=== PATIENT | female | born 1970 | race African-American/Black ===

== ENCOUNTER 2017-04-20 15:35 | Emergency (ER) | payer OTHER ==
[2017-04-20 15:51] VITALS: BP 145/85; PULSE 58; TEMP 98.2; BMI 39.1
[2017-04-20] MEDS ORDERED: SODIUM CHLORIDE 1,000 ML IV STA (16:08)
[2017-04-20] MEDS ORDERED: morphine CARPU-JECT 4 MG/1 ML DISP.SYRIN IVPUSH ONE (16:10)
[2017-04-20] MEDS ORDERED: morphine CARPU-JECT 4 MG/1 ML DISP.SYRIN ONE (16:11)
--- NOTE | 2017-04-20 16:13 | PDOC ---
History of Present Illness <Rachel Henderson - Last Filed: 04/20/17 18:35> - General History Source: Patient Exam Limitations: No Limitations - History of Present Illness Initial Comments: 04/20/17 16:18 46 y/o F with a PMHx of HTN, cholecystectomy, bariatric surgery presents to the ED with intermittent right sided pain for 2 days. Patient rates the pain a 9/ 10. She states it began two days ago and resolved by itself, but returned today and has persisted. She reports she had residual gallstones after her cholecystectomy. She denies fever, chills, nausea, vomiting, diarrhea, constipation. Denies back pain, dysuria, hematuria. Denies chest pain, SOB. <Keily Gan - Last Filed: 04/20/17 18:39> - General Chief Complaint: Pain Stated Complaint: RIGHT FLANK/ABD PAIN Time Seen by Provider: 04/20/17 15:42 Past History - Past Medical History Anemia: No Asthma: No Cancer: No Cardiac Disorders: No CVA: No COPD: No CHF: No Dementia: No Diabetes: No GI Disorders: No Disorders: No (COMMON BILE DUCT STONES) HTN: Yes Hypercholesterolemia: No Liver Disease: No Seizures: No Thyroid Disease: No - Surgical History Abdominal Surgery: Yes (SEE BELOW) Appendectomy: No Cardiac Surgery: No Cholecystectomy: Yes (1989) Lung Surgery: No Neurologic Surgery: No Orthopedic Surgery: Yes (LEFT KNEE ARTHROSCOPY 2013) - Suicide/Smoking/Psychosocial Hx Smoking Status: No Smoking History: Never smoked Have you smoked in the past 12 months: No Number of Cigarettes Smoked Daily: 0 Hx Alcohol Use: No Drug/Substance Use Hx: No Substance Use Type: Alcohol Hx Substance Use Treatment: No <Rachel Henderson - Last Filed: 04/20/17 18:35> <Keily Gan - Last Filed: 04/20/17 18:39> - Past Medical History Allergies/Adverse Reactions: Allergies Allergy/AdvReac Type Severity Reaction Status Date / Time No Known Drug Allergies Allergy Verified 02/08/16 13:20 Home Medications: Ambulatory Orders Cholecalciferol (Vitamin D3) [Vitamin D3] 2,000 unit PO DAILY 04/20/17 Lidocaine 5% Patch [Lidoderm Patch -] 1 patch TP DAILY PRN #30 patch 04/20/17 Methocarbamol [Robaxin -] 500 mg PO TID PRN #30 tablet 04/20/17 Multivitamin/Iron/Folic Acid [Centrum Adults Tablet] 1 each PO DAILY 04/20/17 Naproxen [Naprosyn -] 500 mg PO BID PRN #14 tablet 04/20/17 Abd/GI Specific PMHX - Complaint Specific PMHX Gall Bladder Disease: Yes (s/p miguel and retained stones) Pancreatitis: No <Rachel Henderson - Last Filed: 04/20/17 18:35> Review of Systems - Review of Systems Able to Perform ROS?: Yes Comments:: 04/20/17 16:18 GENERAL/CONSTITUTIONAL: No: fever, chills, weakness, loss of appetite. HEAD, EYES, EARS, NOSE AND THROAT: No: change in vision, ear pain, discharge, sore throat, throat swelling. CARDIOVASCULAR: No: chest pain, lightheadedness, palpitations, syncope RESPIRATORY: No: cough, shortness of breath, wheezing, hemoptysis, stridor. GASTROINTESTINAL: (+) right sided pain. No: nausea, vomiting, abdominal cramping , diarrhea, rectal bleeding, constipation. GENITOURINARY: No: dysuria, hematuria, frequency, urgency, flank pain. MUSCULOSKELETAL: No: back pain, neck pain, joint pain, muscle swelling or pain SKIN AND BREASTS: No: lesions, pallor, rash or easy bruising. NEUROLOGIC: No: headache, vertigo, paresthesias, weakness ENDOCRINE: No: unexplained weight gain or loss HEMATOLOGIC/LYMPHATIC: No: anemia, easy bleeding, swelling nodes <Keily Gan - Last Filed: 04/20/17 18:39> *Physical Exam - Vital Signs Last Vital Signs Temp Pulse Resp BP Pulse Ox 98.2 F 58 L 15 145/85 98 04/20/17 15:41 04/20/17 15:41 04/20/17 15:41 04/20/17 15:41 04/20/17 15:41 - Physical Exam Comments: 04/20/17 16:18 GENERAL: The patient is in no acute distress. HEAD: Normal with no signs of trauma. EYES: PERRLA, EOMI, sclera anicteric, conjunctiva clear. ENT: Ears normal, nares patent, oropharynx clear without exudates. Moist mucous membranes. NECK: Normal range of motion, supple without lymphadenopathy, JVD, or masses. LUNGS: Breath sounds equal, clear to auscultation bilaterally. No wheezes, and no crackles. HEART:Regular rate and rhythm, normal S1 and S2 without murmur, rub or gallop. ABDOMEN: Soft, nontender, normoactive bowel sounds. No guarding, no rebound. EXTREMITIES: Normal range of motion, no edema. No clubbing or cyanosis. No erythema, or tenderness. NEUROLOGICAL: Cranial nerves II through XII grossly intact. Normal speech. No focal neurological deficits. MUSCULOSKELETAL: Back non-tender to palpation, no CVA tenderness SKIN: Warm, Dry, normal turgor, no rashes or lesions noted. <Keily Gan - Last Filed: 04/20/17 18:39> ED Treatment Course - LABORATORY CBC & Chemistry Diagram: 04/20/17 16:20 04/20/17 16:20 <Rachel Henderson - Last Filed: 04/20/17 18:35> - LABORATORY CBC & Chemistry Diagram: 04/20/17 16:20 04/20/17 16:20 - RADIOLOGY Radiograph Interpretation: 04/20/17 18:[address] reported by Dr[address] Christopher Bravo Impression: No evidence of urinary tract calculi, obstructive uropathy or acute pathology within the abdomen or pelvis <Keily Gan - Last Filed: 04/20/17 18:39> Medical Decision Making - Medical Decision Making A portion of this note was documented by scribe services under my direction. I have reviewed the details of the note, within reason, and agree with the documentation with the following case summary and management plan written by me. Nursing documentation reviewed and incorporated into medical decision making 04/20/17 16:26 46 yo F presenting ot the ER With 2 days of right side/flank pain currently /10 ? radiation to the groin No fevers or chills No hematuria or pyuria Prior cholecystectomy DD: nephrolithiasis, ureterolithiasis, pyelonephritis, musculoskeletal pain, obstruction? 04/20/17 16:50 Laboratory Tests 04/20/17 04/20/17 15:50 16:20 WBC 7.0 Hgb 12.0 Hct 35.7 Plt Count 174 Urine Blood 1+ H Urine Nitrite Negative Urine HCG, Qual Negative 04/20/17 17:24 Laboratory Tests 04/20/17 16:20 Sodium 136 Potassium 3.7 Chloride 104 Carbon Dioxide 27 BUN 9 Creatinine 0.8 Random Glucose 82 04/20/17 18:35 CT of the abdomen and pelvis negative for any acute intra-abdominal pathology. Patient be discharged home. Patient will be asked to follow-up with her primary care physician. Symptoms most consistent with musculoskeletal pain. Return to the emergency department for any other concerns or complaints. <Rachel Henderson - Last Filed: 04/20/17 18:35> *DC/Admit/Observation/Transfer - Discharge Dispostion Admit: No <Rachel Henderson - Last Filed: 04/20/17 18:35> - Attestations Scribe Attestion: 04/20/17 16:18 Documentation prepared by Keily Gan, acting as medical charge entry specialist for Rachel Henderson MD. <Keily Gan - Last Filed: 04/20/17 18:39> Diagnosis at time of Disposition: Musculoskeletal pain - Discharge Dispostion Disposition: HOME Condition at time of disposition: Good - Prescriptions Prescriptions: Lidocaine 5% Patch [Lidoderm Patch -] 1 patch TP DAILY PRN #30 patch PRN Reason: Pain Naproxen [Naprosyn -] 500 mg PO BID PRN #14 tablet PRN Reason: Pain Methocarbamol [Robaxin -] 500 mg PO TID PRN #30 tablet PRN Reason: Pain - Referrals Referrals: Devon Rae MD [Primary Care Provider] - - Patient Instructions Printed Discharge Instructions: DI for Musculoskeletal Pain Additional Instructions: Return to the emergency department immediately with ANY new, persistent or worsening symptoms. Continue any medications as previously prescribed by your physician. You should follow up with your primary doctor as soon as possible regarding today's emergency department visit. . Please make sure your doctor reviews the results of your emergency evaluation. Thank you for coming to the [facility] today for your care. It was a pleasure to see you today. Please note that your evaluation is INCOMPLETE until you follow-up with your doctor. - Post Discharge Activity Forms/Work/School Notes: Back to Work
[2017-04-20 16:25] LABS: PH,URINE 5.5 (4.5-8); URINE APPEARANCE Clear; URINE BILIRUBIN 1+ (NEGATIVE); URINE BLOOD 1+ (NEGATIVE); URINE COLOR YELLOW; URINE GLUCOSE (UA) Negative (NEGATIVE); URINE KETONE 1+ (NEGATIVE); URINE LEUK ESTERASE Negative (NEGATIVE); URINE NITRITE Negative (NEGATIVE); URINE PROTEIN Trace (NEGATIVE)
[2017-04-20 16:42] LABS: BASOPHIL 0.4 % (0-2.0); EOSINOPHIL 1.5 % (0-4.5); MCHC 33.7 g/dl (32.0-36.0); MEAN CELL VOLUME 86.2 fl (80-96); MEAN PLT VOLUME 10.3 fl (7.5-11.1); NEUTROPHILS 67.5 % (42.8-82.8); PLATELET COUNT 174 K/MM3 (134-434); RDW 14.2 % (11.6-15.6)
[2017-04-20 16:53] LABS: ALBUMIN 3.8 g/dl (3.5-5.0); ALK PHOS 72 U/L (32-92); ANION GAP 5 (8-16); BILIRUBIN,TOTAL 0.7 mg/dl (0.2-1.0); CALCIUM 9.2 mg/dl (8.4-10.2); CO2 27 mmol/L (22-28); CREATININE 0.8 mg/dl (0.6-1.3); GLUCOSE,RANDOM 82 mg/dl (74-106); SGOT/AST 17 U/L (10-42); SGPT/ALT 9 U/L (10-40); TOT PROT 6.7 g/dl (6.4-8.3)
[2017-04-20 17:25] LABS: URINE BACTERIA FEW /hpf (NEGATIVE); URINE RBC 0-2 /hpf (0-3)
== END 2017-04-20 18:53 | disposition home or self-care (01) ==
LOC: FER 15:35
PROC: 3E033NZ Introduction of Analgesics, Hypnotics, Sedatives into Peripheral Vein, Percutaneous Approach (ICD-10-PCS; principal; 2017-04-20)
PROC: 3E0337Z Introduction of Electrolytic and Water Balance Substance into Peripheral Vein, Percutaneous Approach (ICD-10-PCS; 2017-04-20)
DX: M79.1 Myalgia (principal); I10 Essential (primary) hypertension
CPT/HCPCS: 36415; 74176; 80053; 81003; 81015; 84703; 85025; 87086; 96361; 96374; 99283-25

== ENCOUNTER 2018-08-05 18:50 | Observation (INO) | payer BC ==
--- NOTE | 2018-08-05 21:34 | PDOC ---
History of Present Illness <Andie Esteban - Last Filed: 08/05/18 21:54> - General History Source: Patient, Old Records Exam Limitations: No Limitations - History of Present Illness Initial Comments: HPI: 47 y/o female presenting to [facility] ER complaining of upper midline to RUQ abdominal pain worsening over the past three days. Pain radiates into right side of chest, right upper extremity, and back. Endorses nausea without vomiting. Normal bowel movements, last yesterday. Tolerating PO. H/o of similar symptoms. S/p cholecystectomy and gastric sleeve. H/o recurrent biliary stones following cholecystectomy. Followed by Dr. Marmolejo, who told the pt to come to the emergency department if symptoms return. Pt had abdominal MRI performed in 03/2018 which revealed possible 4mm nodule versus artifact in posterior right costophrenic angle. S/p cholecystectomy. CBD not dilated. PCP: Dr. Rae Social Hx: - EtOH: Social, none in last few days - Tobacco: Denies - Street Drugs: Denies Medical Hx: - HTN Surgical Hx: - Cholecystectomy - Gastric Sleeve, 07/2016 at facility in [facility] <Jeffry Argueta - Last Filed: 08/06/18 01:03> - General Chief Complaint: Pain, Acute Stated Complaint: ABDOMINAL PAIN Time Seen by Provider: 08/05/18 21:31 Past History <Andie Esteban - Last Filed: 08/05/18 21:54> - Past Medical History Anemia: No Asthma: No Cancer: No Cardiac Disorders: No CVA: No COPD: No CHF: No Dementia: No Diabetes: No GI Disorders: No Disorders: No (COMMON BILE DUCT STONES) HTN: Yes Hypercholesterolemia: No Liver Disease: No Seizures: No Thyroid Disease: No - Surgical History Abdominal Surgery: Yes (SEE BELOW) Appendectomy: No Cardiac Surgery: No Cholecystectomy: Yes (1989) Gastric Stapling: Yes (GASTRIC SLEEVE) Lung Surgery: No Neurologic Surgery: No Orthopedic Surgery: Yes (LEFT KNEE ARTHROSCOPY 2013) - Immunization History Immunization Up to Date: No - Suicide/Smoking/Psychosocial Hx Smoking Status: No Smoking History: Never smoked Have you smoked in the past 12 months: No Number of Cigarettes Smoked Daily: 0 Information on smoking cessation initiated: No Hx Alcohol Use: No Drug/Substance Use Hx: No Substance Use Type: Alcohol Hx Substance Use Treatment: No <Jeffry Argueta - Last Filed: 08/06/18 01:03> - Past Medical History Allergies/Adverse Reactions: Allergies Allergy/AdvReac Type Severity Reaction Status Date / Time No Known Drug Allergies Allergy Verified 02/08/16 13:20 Home Medications: Ambulatory Orders Cholecalciferol (Vitamin D3) [Vitamin D3] 2,000 unit PO DAILY 04/20/17 Lidocaine 5% Patch [Lidoderm Patch -] 1 patch TP DAILY PRN #30 patch 04/20/17 Methocarbamol [Robaxin -] 500 mg PO TID PRN #30 tablet 04/20/17 Multivitamin/Iron/Folic Acid [Centrum Adults Tablet] 1 each PO DAILY 04/20/17 Naproxen [Naprosyn -] 500 mg PO BID PRN #14 tablet 04/20/17 Review of Systems - Review of Systems Able to Perform ROS?: Yes Comments:: In addition to that documented in the HPI above, the additional ROS was obtained : Constitutional: Denies fevers. Endorses chills Eyes: Denies vision changes ENMT: Denies sore throat CV: Chest pain per HPI, denies exertional component Resp: Denies SOB GI: Denies vomiting or diarrhea : Denies painful urination MSK: Denies recent trauma Skin: Denies new rashes Neuro: Denies new numbness or tingling or weakness Endocrine: Denies polyuria Heme: Denies bleeding or bruising <Jeffry Argueta - Last Filed: 08/06/18 01:03> *Physical Exam - Vital Signs Last Vital Signs Temp Pulse Resp BP Pulse Ox 97.8 F 65 18 129/73 100 08/05/18 18:57 08/05/18 18:57 08/05/18 18:57 08/05/18 18:57 08/05/18 18:57 <Andie Esteban - Last Filed: 08/05/18 21:54> - Vital Signs Last Vital Signs Temp Pulse Resp BP Pulse Ox 97.8 F 65 18 129/73 100 08/05/18 18:57 08/05/18 18:57 08/05/18 18:57 08/05/18 18:57 08/05/18 18:57 - Physical Exam Comments: Constitutional: Well-developed, well-nourished, nontoxic obese female in no acute distress or obvious discomfort. Found sitting on edge of hospital bed. Alert and oriented x4. Answered all questions appropriately and completely. Speech was non-labored, non-pressured. Head: Normocephalic. No obvious external signs of trauma. Eyes: Sclerae white. EARS: Hearing grossly intact. NOSE: No nasal discharge. Neck: Supple, trachea is midline. Cardiovascular: Regular rate and regular rhythm. No murmur, rubs, clicks, or gallops. Peripheral pulses: Radial pulses full. Respiratory: Breathing unlabored. Equal chest rise and fall. Clear to auscultation bilaterally. No stridor, no wheezing, no rhonchi. Gastrointestinal: abdomen is tender in midline above umbilicus and RUQ. No rebound, guarding, or withdrawal. No pulsatile masses. No overlying skin lesions or obvious signs of trauma. Neuro: Alert and oriented. Moving all four extremities spontaneously. Skin: Warm, dry, and intact. : No R or L CVA tenderness. Psych: Affect: appropriate. Mood: normal. <Jeffry Argueta - Last Filed: 08/06/18 01:03> Moderate Sedation - Procedure Monitoring Vital Signs: Procedure Monitoring Vital Signs Temperature 97.8 F 08/05/18 18:57 Pulse Rate 65 08/05/18 18:57 Respiratory Rate 18 08/05/18 18:57 Blood Pressure 129/73 08/05/18 18:57 O2 Sat by Pulse Oximetry (%) 100 08/05/18 18:57 <Andie Esteban - Last Filed: 08/05/18 21:54> - Procedure Monitoring Vital Signs: Procedure Monitoring Vital Signs Temperature 97.8 F 08/05/18 18:57 Pulse Rate 65 08/05/18 18:57 Respiratory Rate 18 08/05/18 18:57 Blood Pressure 129/73 08/05/18 18:57 O2 Sat by Pulse Oximetry (%) 100 08/05/18 18:57 <Jeffry Argueta - Last Filed: 08/06/18 01:03> ED Treatment Course - Additional Consults Time Called: 21:54 (Called [facility] for GI ([employer]) ) <Andie Esteban - Last Filed: 08/05/18 21:54> - LABORATORY CBC & Chemistry Diagram: 08/05/18 22:26 08/05/18 22:26 - RADIOLOGY Radiograph Interpretation: RUQ U/S Mehdi Betts MD wrote on Aug 06, 2018 at 12:46 AM: Referring Physician: BISHOP MCMAHON Patient Name: JAIRO LAKE THIS IS A PRELIMINARY REPORT FROM [facility] DATE OF SERVICE: 2018-08-05 23:39:44 IMAGES: 36 EXAM: Right upper quadrant abdominal ultrasound HISTORY: Right upper quadrant pain after cholecystectomy COMPARISON: None. FINDINGS: Postcholecystectomy. No abnormalities of the gallbladder fossa. Fatty liver. Common bile duct measures 6.5-- 8.5 mm. This mild dilatation can be normal postcholecystectomy. Nevertheless if there is any suspicion of retained stone in bile duct MRCP should be obtained. No right upper quadrant free fluid. No right hydronephrosis. THIS DOCUMENT HAS BEEN ELECTRONICALLY SIGNED Mehdi Betts MD 08/06/2018 00:45 EST <Jeffry Argueta - Last Filed: 08/06/18 01:03> *DC/Admit/Observation/Transfer <Andie Esteban - Last Filed: 08/05/18 21:54> - Discharge Dispostion Decision to Admit order: Yes <Jeffry Argueta - Last Filed: 08/06/18 01:03> Diagnosis at time of Disposition: RUQ abdominal pain, Dilation of common bile duct - Discharge Dispostion Condition at time of disposition: Stable - Referrals Referrals: Devon Rae MD [Primary Care Provider] - - Patient Instructions - Post Discharge Activity
[2018-08-05] MEDS ORDERED: ACETAMINOPHEN 500 MG TABLET (FP) PO ONE (21:47)
[2018-08-05 22:34] LABS: BASO % 0.5 % (0-2.0); EOS % 1.7 % (0-4.5); HEMATOCRIT 36.7 % (32.4-45.2); HEMOGLOBIN 12.5 GM/dL (10.7-15.3); LYMPH % 33.3 % (8-40); MCH 29.6 pg (25.7-33.7); MEAN CELL VOLUME 87.2 fl (80-96); MEAN PLT VOLUME 9.6 fl (7.5-11.1); MONO % 6.3 % (3.8-10.2); NEUT % 58.2 % (42.8-82.8); PLATELET COUNT 180 K/MM3 (134-434); RBC 4.21 M/mm3 (3.60-5.2); RDW 14.5 % (11.6-15.6); WHITE BLOOD COUNT 6.2 K/mm3 (4.0-10.0)
--- NOTE | 2018-08-05 22:48 | PDOC ---
Attending Attestation - HPI HPI: This patient is a 47 year old female, with PMHx of HTN, gallstones s/p cholecystectomy, bariatric surgery, who presents with 2-3 days of midline & RUQ pain. She describes the pain as worsening in intensity, radiates to right chest , discomfort in right arm, and left flank pain. She notes decreased appetite but able to tolerate PO intake. She also notes dizziness today which prompted to come in. Denies any nausea, vomit, loose stools, fever, chills. Allergies: None Social history: Denies smoking, but has in the past. 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 PCP: ([phone]) Surgical History: 3x C-sections, cholecystectomy, Knee surgery, upper endoscopy , and colonoscopy GI: [facility] - Physicial Exam PE: GENERAL: Well developed, well nourished. Awake and alert. In no acute distress. HEENT: Normocephalic, atraumatic. PERRLA, EOMI. No conjunctival pallor. Sclerae are non -icteric. Moist mucous membranes. Oropharynx is clear. CARDIOVASCULAR: Regular rate and rhythm. No murmurs, rubs, or gallops. PULMONARY: No evidence of respiratory distress. Lungs clear to auscultation bilaterally. No wheezing, rales or rhonchi. ABDOMINAL: Obese. Soft. Non-tender. Non-distended. No rebound or guarding. No organomegaly. Normoactive bowel sounds. MUSCULOSKELETAL Normal range of motion at all joints. No bony deformities or tenderness. No CVA tenderness. EXTREMITIES: No cyanosis. No clubbing. No edema. No calf tenderness. SKIN: Warm and dry. Normal capillary refill. No rashes. No jaundice. NEUROLOGICAL: Alert, awake, appropriate.Normal speech. Toes are downgoing bilaterally. PSYCHIATRIC: Cooperative. Good eye contact. Appropriate mood and affect. 08/05/18 22:53 <Andie Esteban - Last Filed: 08/05/18 22:48> - Resident Resident Name: Jeffry Argueta - ED Attending Attestation I have performed the following: I have examined & evaluated the patient, The case was reviewed & discussed with the resident, I agree w/resident's findings & plan, Exceptions are as noted - Physicial Exam PE: 08/06/18 01:02 pt had complaint of epigastric pain, left chest pain and left arm pain. She did not have guarding on exam, ekg did not show any ischemia -troponin negative cbc and LFTs unremarkable - Medical Decision Making 08/06/18 00:19 47-year-old female who has a history of abdominal pain and is typically followed by Dr. Miranda presented today because of epigastric pain and midsternal chest pain radiating to her shoulders. She says she gets this pain is because of her common bile duct stones. 2 years ago she had a gastric bypass She denies fever or chills. No nausea, vomiting or diarrhea EKG is normal sinus rhythm at 65 bpm, with incomplete right bundle-branch block. When compared to her prior EKG of 12/31/2015 there is no significant EKG changes or signs of acute ischemia Her troponin is negative 08/06/18 01:06 gallbladder ultrasound tonight showed common bile duct is dilated 6.5- 8.5 mm post cholecystectomy. The prior abd MRI in Mar 2018 states that her CBD dimension was normal 08/06/18 01:09 -pt symptomatic with epigastric/chest pain,dilated CBD will admit to med/surg <Chloé Washington - Last Filed: 08/06/18 01:14>
[2018-08-05] MEDS ORDERED: ACETAMINOPHEN 325 MG TABLET (FP) ONE (22:59)
[2018-08-05 23:06] LABS: URINE APPEARANCE SLCLOUDY; URINE BILIRUBIN NEGATIVE (<2.0 mg/dL); URINE COLOR STRAW; URINE GLUCOSE (UA) NEGATIVE (NEGATIVE); URINE KETONE NEGATIVE (NEGATIVE); URINE LEUK ESTERASE 2+ (NEGATIVE); URINE NITRITE NEGATIVE (NEGATIVE); URINE PROTEIN NEGATIVE (NEGATIVE); URINE UROBILINOGEN NEGATIVE mg/dL (0.2-1.0)
[2018-08-05 23:10] LABS: EPI CELLS FEW /HPF (FEW); URINE MUCUS RARE
[2018-08-05 23:45] LABS: ALBUMIN 3.5 g/dl (3.4-5.0); ALK PHOS 74 U/L (45-117); ANION GAP 5 MMOL/L (8-16); BILIRUBIN,TOTAL 0.5 mg/dL (0.2-1); BLOOD UREA NITROGEN 11 mg/dL (7-18); CALCIUM 9.1 mg/dL (8.5-10.1); CHLORIDE 104 mmol/L (98-107); CO2 30 mmol/L (21-32); CREATININE 0.7 mg/dL (0.55-1.3); GLUCOSE,RANDOM 89 mg/dL (74-106); LIPASE 108 U/L (73-393); POTASSIUM 4.1 mmol/L (3.5-5.1); SGOT/AST 14 U/L (15-37); SGPT/ALT 16 U/L (13-61); SODIUM 140 mmol/L (136-145)
[2018-08-06] MEDS ORDERED: HYDROmorphone HCL CARPU-JECT 2 MG/1 ML DISP.SYRIN IVPUSH ONE (01:00)
[2018-08-06] MEDS ORDERED: DOCUSATE SODIUM 100 MG CAPSULE (FP) PO ONE ×2 (01:00→01:17)
[2018-08-06] MEDS ORDERED: HYDROmorphone HCl 2 MG/ML VIAL ONE (01:17)
--- NOTE | 2018-08-06 01:49 | HP ---
CHIEF COMPLAINT: PCP: ([phone]) or Dr. Rae? HISTORY OF PRESENT ILLNESS: 47 y/o F w/ PMH HTN, cholecystectomy (lap miguel 1990, residual intraductal stones 2017), 3x C-sections, EDG C-scope 2016, bariatric surgery, p/w worsening upper midline to RUQ abdominal pain x3d w/ associated nausea and dizziness today which prompted to come in. She describes the pain as worsening in intensity and radiates into right side of chest, right upper extremity, and back. Endorses decreased appetite and nausea without vomiting. Normal bowel movements, last yesterday. Tolerating PO. H/o of similar symptoms s/p cholecystectomy and gastric sleeve. H/o recurrent biliary stones following cholecystectomy. Followed by Dr. Marmolejo, who told the pt to come to the emergency department if symptoms return. Pt had abdominal MRI performed in 03/2018 which revealed possible 4mm nodule versus artifact in posterior right costophrenic angle. S/p cholecystectomy. CBD not dilated. Denies any LYNN, nausea, vomit, loose stools, fever, chills, urinary sxs. ER course was notable for: (1)prelim abd U/S: common bile duct is dilated 6.5- 8.5 mm post cholecystectomy. The prior abd MRI in Mar 2018 states that her CBD dimension was normal (2) tylenol, dilauded, colace (3) EKG is normal sinus rhythm at 65 bpm, with incomplete right bundle-branch block. When compared to her prior EKG of 12/31/2015 there is no significant EKG changes or signs of acute ischemia, troponin is negative, labs unremarkable Recent Travel: PAST MEDICAL HISTORY: per hpi GI: Jlaeel ] EGD/Colonoscopy (2016 Dr. 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 Family History: Allergies No Known Drug Allergies Allergy (Verified 02/08/16 13:20) HOME MEDICATIONS: Home Medications Medication Instructions Recorded Cholecalciferol (Vitamin D3) 2,000 unit PO DAILY 04/20/17 [Vitamin D3] Lidocaine 5% Patch [Lidoderm Patch 1 patch TP DAILY PRN #30 patch 04/20/17 -] Methocarbamol [Robaxin -] 500 mg PO TID PRN #30 tablet 04/20/17 Multivitamin/Iron/Folic Acid 1 each PO DAILY 04/20/17 [Centrum Adults Tablet] Naproxen [Naprosyn -] 500 mg PO BID PRN #14 tablet 04/20/17 REVIEW OF SYSTEMS as per hpi PHYSICAL EXAMINATION Vital Signs - 24 hr 08/05/18 18:57 Temperature 97.8 F Pulse Rate 65 Respiratory 18 Rate Blood Pressure 129/73 O2 Sat by Pulse 100 Oximetry (%) GENERAL: AOX3 NAD, obese HEAD: NCAT EYES: extraocular movements intact, sclera anicteric, conjunctiva clear. No lid lag. EARS, NOSE, THROAT: Ears normal, nares patent, oropharynx clear without exudates. Moist mucous membranes. NECK: Normal range of motion, supple without lymphadenopathy, JVD, or masses. LUNGS: CTAB HEART: RRR, normal S1 and S2 without murmur, rub or gallop. ABDOMEN: Soft, ND TTP diffusely more prominent in RUQ, normoactive bowel sounds , no guarding, no rebound, no masses. MUSCULOSKELETAL: Normal range of motion at all joints. No bony deformities or tenderness. UPPER EXTREMITIES: 2+ pulses, warm, well-perfused. No cyanosis. No clubbing. No peripheral edema. LOWER EXTREMITIES: 2+ pulses, warm, well-perfused. No calf tenderness. No peripheral edema. NEUROLOGICAL: Cranial nerves II-XII intact. Normal speech. PSYCHIATRIC: Cooperative. Good eye contact. Appropriate mood and affect. SKIN: Warm, dry, normal turgor, no rashes or lesions noted, normal capillary refill. Laboratory Results - last 24 hr 08/05/18 08/05/18 08/05/18 22:26 22:26 22:51 WBC 6.2 RBC 4.21 Hgb 12.5 Hct 36.7 MCV 87.2 MCH 29.6 MCHC 34.0 RDW 14.5 Plt Count 180 MPV 9.6 Absolute Neuts (auto) 3.6 Neutrophils % 58.2 Lymphocytes % 33.3 D Monocytes % 6.3 Eosinophils % 1.7 Basophils % 0.5 Nucleated RBC % 0 Sodium 140 Potassium 4.1 Chloride 104 Carbon Dioxide 30 Anion Gap 5 L BUN 11 Creatinine 0.7 Creat Clearance w eGFR > 60 Random Glucose 89 Calcium 9.1 Total Bilirubin 0.5 AST 14 L ALT 16 Alkaline Phosphatase 74 Troponin I < 0.02 Total Protein 7.0 Albumin 3.5 Lipase 108 Urine Color Straw Urine Appearance Slcloudy Urine pH 6.0 Ur Specific [place] 1.004 L Urine Protein Negative Urine Glucose (UA) Negative Urine Ketones Negative Urine Blood 2+ H Urine Nitrite Negative Urine Bilirubin Negative Urine Urobilinogen Negative Ur Leukocyte Esterase 2+ H Urine WBC (Auto) <1 Urine RBC (Auto) 1 Ur Epithelial Cells Few Urine Mucus Rare RUQ U/S Mehdi Betts MD wrote on Aug 06, 2018 at 12:46 AM: Referring Physician: BISHOP MCMAHON Patient Name: JAIRO LAKE THIS IS A PRELIMINARY REPORT FROM [facility] DATE OF SERVICE: 2018-08-05 23:39:44 IMAGES: 36 EXAM: Right upper quadrant abdominal ultrasound HISTORY: Right upper quadrant pain after cholecystectomy COMPARISON: None. FINDINGS: Postcholecystectomy. No abnormalities of the gallbladder fossa. Fatty liver. Common bile duct measures 6.5-- 8.5 mm. This mild dilatation can be normal postcholecystectomy. Nevertheless if there is any suspicion of retained stone in bile duct MRCP should be obtained. No right upper quadrant free fluid. No right hydronephrosis. THIS DOCUMENT HAS BEEN ELECTRONICALLY SIGNED Mehdi Betts MD 08/06/2018 00:45 EST ASSESSMENT/PLAN: 47 y/o F w/ PMH HTN, gallstones s/p cholecystectomy, bariatric surgery, p/w worsening upper midline to RUQ abdominal pain x3d w/ associated nausea and dizziness today which prompted to come in. RUQ Pain w/ dilated bile duct - afebrile and w/o WBC. LFTs normal. Lipase normal. prelim abd U/S: common bile duct is dilated 6.5- 8.5 mm post cholecystectomy but that if any concern of retained stone to obtain MRCP. The prior abd MRI in Mar 2018 states that her CBD dimension was normal (although report didn't state the diameter of aforementioned duct at that juncture) s/p tylenol, dilauded, colace in ED f/u Final U/S report Trend LFTs NPO LR 75cc pain ctl Consult GI. Holding off MRCP order until we can discuss with GI EKG is normal sinus rhythm at 65 bpm, with incomplete right bundle-branch block. When compared to her prior EKG of 12/31/2015 there is no significant EKG changes or signs of acute ischemia, troponin is negative Positive LE, blood in UA No symptoms, no fever, no white count. f/u UCx and treat if clinically warranted. HTN Continue home meds FEN LR 75cc replete prn NPO ppx SCDs Full Code Dispo Med surg obs Visit type - Emergency Visit Emergency Visit: Yes ED Registration Date: 08/06/18 Care time: The patient presented to the Emergency Department on the above date and was hospitalized for further evaluation of their emergent condition. - New Patient This patient is new to me today: Yes Date on this admission: 08/06/18 - Critical Care Critical Care patient: No
--- NOTE | 2018-08-06 02:40 | PN ---
Teaching Attending Note Name of Resident: Manolo Owen ATTENDING PHYSICIAN STATEMENT I saw and evaluated the patient. I reviewed the resident's note and discussed the case with the resident. I agree with the resident's findings and plan as documented. SUBJECTIVE: Seen and examined; please see resident note for further historical documentation. In summation this is a 47 y/o female with a history of s/p cholecystectomy (lap miguel 1990, residual intraductal stones 2017), HTN, 3x C- sections, EDG C-scope 2015. Had MRCP 03/2018 with no dilation of pancreas/ biliary ducts. She presents with 2-3 days of pain in her upper abdomen similar to the prior episodes she had. Nothing makes it better or worse, hasn't seen any other provider. Follows with Dr. Marmolejo from GI. Found to have ductal dilation on prelim US today done in ER. GI was called and as her GI wasn't available will observe and consult him to see in the morning to plan for further studies, etc. She got dilaudid before I spoke with her and she was quite sleepy in ER 10 sys ROS done and negative aside from HPI PMH and PSH reviewed -Cholecystectomy (1990 at [facility]) -Gastric Bypass (sleeve 07/2016 at [facility]) -EGD/Colonoscopy (2015 Dr. Marmolejo, no issues) -ERCP with stent placement (2007, Dr. Marmolejo for intraductal biliary stones) FH asked and noncontributory Socially she is a nondrinker, nonsmoker Medication list reviewed; pending reconciliation OBJECTIVE: VS, labs, imaging reviewed NAD, AAO, resting in bed Mild upper abdominal tenderness with negative jim's sign, ND +BS RRR s1/2 no mgr Lungs CTAB w/ sym exp CN2-12 wnl, no fnd Normal mood, flat affect, appropriate behavior Labs reviewed; CBC and LFTs wholly unremarkable. Chemistry unremarkable. Negative lipase. US prelim results reviewed, EKG reviewed; no significant changes from prior study UA with 2+ blood 2+ LE ASSESSMENT AND PLAN: Mrs Tellez presents with abdominal pain and is found to have a dilated bile duct 1) Abdominal Pain with dilated bile duct -No WBC, no fever. LFTs normal. Lipase normal. Final US report pending; prelim states that CBD is 6.5-8.5mm which could be normal post cholecystectomy but that if any concern of retained stone to obtain MRCP. Will discuss with Dr. Marmolejo and defer further imaging to his request based on her prior history ; recent MRCP results reviewed (report didn't state the diameter of aformentioned duct at that juncture) -Trend CMP. No s/s infection. Monitor. -NPO, Maintenance fluids. Consult GI. Holding off MRCP order until we can discuss with her assessment analyst. 2) Positive LE, blood in UA -No symptoms, no fever, no white count. -UCx pending, will observe and treat if clinically warranted. 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 SHIRAA -LR@75 -PRN replete -NPO -As tolerated Full Code
[2018-08-06] MEDS ORDERED: ACETAMINOPHEN 1000 MG/100 ML VIAL (NON FORMULARY) IVPB PRN (02:59)
[2018-08-06] MEDS ORDERED: LACTATED RINGERS SOLUTION 1,000 ML IV SCH (03:00)
[2018-08-06 07:45] VITALS: BMI 39.8
[2018-08-06 08:57] LABS: BASO % 0.5 % (0-2.0); EOS % 1.4 % (0-4.5); HEMATOCRIT 40.3 % (32.4-45.2); HEMOGLOBIN 12.7 GM/dL (10.7-15.3); LYMPH % 31.3 % (8-40); MCH 27.7 pg (25.7-33.7); MCHC 31.5 g/dl (32.0-36.0); MEAN PLT VOLUME 9.3 fl (7.5-11.1); MONO % 5.4 % (3.8-10.2); NEUT % 61.4 % (42.8-82.8); PLATELET COUNT 182 K/MM3 (134-434); RBC 4.58 M/mm3 (3.60-5.2); RDW 13.9 % (11.6-15.6); WHITE BLOOD COUNT 5.8 K/mm3 (4.0-10.0)
[2018-08-06 09:20] LABS: ANION GAP 7 MMOL/L (8-16); BLOOD UREA NITROGEN 8 mg/dL (7-18); CALCIUM 8.7 mg/dL (8.5-10.1); CHLORIDE 106 mmol/L (98-107); CO2 27 mmol/L (21-32); CREATININE 0.7 mg/dL (0.55-1.3); GLUCOSE,RANDOM 84 mg/dL (74-106); PHOSPHOROUS 3.8 mg/dL (2.5-4.9); POTASSIUM 3.9 mmol/L (3.5-5.1); SODIUM 140 mmol/L (136-145)
[2018-08-06 09:38] LABS: ALBUMIN 3.4 g/dl (3.4-5.0); BILIRUBIN,DIRECT 0.2 mg/dL (0.0-0.2); BILIRUBIN,TOTAL 0.8 mg/dL (0.2-1); TOT PROT 6.9 g/dl (6.4-8.2)
[2018-08-06] MEDS ORDERED: amLODIPine BESYLATE 5 MG TABLET (FP) PO SCH (10:00)
--- NOTE | 2018-08-06 10:01 | EKG ---
Test Reason : Blood Pressure : / mmHG Vent. Rate : 065 BPM Atrial Rate : 065 BPM P-R Int : 156 ms QRS Dur : 106 ms QT Int : 434 ms P-R-T Axes : 014 -17 054 degrees QTc Int : 451 ms NORMAL SINUS RHYTHM INCOMPLETE RIGHT BUNDLE BRANCH BLOCK BORDERLINE ECG WHEN COMPARED WITH ECG OF 31-DEC-2015 11:40, INCOMPLETE RIGHT BUNDLE BRANCH BLOCK IS NOW PRESENT Confirmed by Stephen Gil MD ([id number]) on 08/06/2018 10:01:15 AM Referred By: Confirmed By:Stephen Gil MD
--- NOTE | 2018-08-06 10:56 | PN ---
Physical Exam: SUBJECTIVE: Patient seen and examined OBJECTIVE: Vital Signs Period Temp Pulse Resp BP Sys/Nj Pulse Ox Last 24 Hr 97.8 F-98.1 F 55-65 18-18 114-140/60-76 98-100 GENERAL: The patient is awake, alert, and fully oriented, in no acute distress. HEAD: Normal with no signs of trauma. EYES: PERRL, extraocular movements intact, sclera anicteric, conjunctiva clear. No ptosis. ENT: Ears normal, nares patent, oropharynx clear without exudates, moist mucous membranes. NECK: Trachea midline, full range of motion, supple. LUNGS: Breath sounds equal, clear to auscultation bilaterally, no wheezes, no crackles, no accessory muscle use. HEART: Regular rate and rhythm, S1, S2 without murmur, rub or gallop. ABDOMEN: Soft, nontender, nondistended, normoactive bowel sounds, no guarding, no rebound, no hepatosplenomegaly, no masses. EXTREMITIES: 2+ pulses, warm, well-perfused, no edema. NEUROLOGICAL: Cranial nerves II through XII grossly intact. Normal speech, gait not observed. PSYCH: Normal mood, normal affect. SKIN: Warm, dry, normal turgor, no rashes or lesions noted Laboratory Results - last 24 hr 08/05/18 08/05/18 08/05/18 22:26 22:26 22:51 WBC 6.2 RBC 4.21 Hgb 12.5 Hct 36.7 MCV 87.2 MCH 29.6 MCHC 34.0 RDW 14.5 Plt Count 180 MPV 9.6 Absolute Neuts (auto) 3.6 Neutrophils % 58.2 Lymphocytes % 33.3 D Monocytes % 6.3 Eosinophils % 1.7 Basophils % 0.5 Nucleated RBC % 0 Sodium 140 Potassium 4.1 Chloride 104 Carbon Dioxide 30 Anion Gap 5 L BUN 11 Creatinine 0.7 Creat Clearance w eGFR > 60 Random Glucose 89 Calcium 9.1 Phosphorus Magnesium Total Bilirubin 0.5 Direct Bilirubin AST 14 L ALT 16 Alkaline Phosphatase 74 Troponin I < 0.02 Total Protein 7.0 Albumin 3.5 Lipase 108 Urine Color Straw Urine Appearance Slcloudy Urine pH 6.0 Ur Specific [place] 1.004 L Urine Protein Negative Urine Glucose (UA) Negative Urine Ketones Negative Urine Blood 2+ H Urine Nitrite Negative Urine Bilirubin Negative Urine Urobilinogen Negative Ur Leukocyte Esterase 2+ H Urine WBC (Auto) <1 Urine RBC (Auto) 1 Ur Epithelial Cells Few Urine Mucus Rare 08/06/18 08/06/18 08/06/18 08:40 08:40 08:45 WBC 5.8 RBC 4.58 Hgb 12.7 Hct 40.3 MCV 88.0 MCH 27.7 MCHC 31.5 L RDW 13.9 Plt Count 182 MPV 9.3 Absolute Neuts (auto) 3.6 Neutrophils % 61.4 Lymphocytes % 31.3 Monocytes % 5.4 Eosinophils % 1.4 Basophils % 0.5 Nucleated RBC % 0 Sodium 140 Potassium 3.9 Chloride 106 Carbon Dioxide 27 Anion Gap 7 L BUN 8 Creatinine 0.7 Creat Clearance w eGFR > 60 Random Glucose 84 Calcium 8.7 Phosphorus 3.8 Magnesium 2.0 Total Bilirubin 0.8 Direct Bilirubin 0.2 AST 13 L ALT 15 Alkaline Phosphatase 76 Troponin I Total Protein 6.9 Albumin 3.4 Lipase Urine Color Urine Appearance Urine pH Ur Specific [place] Urine Protein Urine Glucose (UA) Urine Ketones Urine Blood Urine Nitrite Urine Bilirubin Urine Urobilinogen Ur Leukocyte Esterase Urine WBC (Auto) Urine RBC (Auto) Ur Epithelial Cells Urine Mucus Active Medications Generic Name Dose Route Start Last Admin Trade Name Freq PRN Reason Stop Dose Admin Acetaminophen 1,000 mg 08/06/18 02:59 Ofirmev Injection - IVPB Q6H PRN PAIN LEVEL 6-10 Amlodipine Besylate 5 mg 08/06/18 10:00 08/06/18 10:20 Norvasc - PO 5 mg DAILY URI Administration Lactated Ringer's 1,000 mls @ 75 mls/hr 08/06/18 03:00 08/06/18 03:28 Lactated Ringers Solution IV 75 mls/hr ASDIR URI Administration ASSESSMENT/PLAN:
[2018-08-06 11:06] LABS: INR 1.13 (0.83-1.09); PROTHROMBIN TIME (PATIENT) 13.3 SEC (9.7-13.0)
--- NOTE | 2018-08-06 11:16 | PN ---
Teaching Attending Note Name of Resident: Davina Lorenzo ATTENDING PHYSICIAN STATEMENT I saw and evaluated the patient. I reviewed the resident's note and discussed the case with the resident. I agree with the resident's findings and plan as documented with exceptions below. SUBJECTIVE: Patient seen and examined. Minimal abdominal pain, no further nausea/vomiting, feels better. Reports ongoing intermittent abdominal pain, more in the setting of taking fatty greasy foods. Had mozzarella sticks yesterday, which feels might have prompted the symptoms. OBJECTIVE: Vital Signs Period Temp Pulse Resp BP Sys/Nj Pulse Ox Last 24 Hr 97.8 F-98.1 F 55-65 18-18 114-140/60-76 97-100 Intake & Output 08/03/18 08/04/18 08/05/18 08/06/18 23:59 23:59 23:59 23:59 Intake Total 225 Balance 225 Weight 230 lb 239 lb 6.4 oz General: sitting in bed in no acute distress Chest; CTAB, no rales or wheezing Abdomen;Soft, mild epigastric tenderness, vague harsha-umbilical minimal tenderness, no voluntary or involuntary guarding or rigidity, positive bowel sounds Extremities: no edema Home Medications Medication Instructions Recorded Amlodipine Besylate 5 mg PO DAILY 08/06/18 Active Medications Acetaminophen (Ofirmev Injection -) 1,000 mg IVPB Q6H PRN PRN Reason: PAIN LEVEL 6-10 Amlodipine Besylate (Norvasc -) 5 mg PO DAILY [facility] Last Admin: 08/06/18 10:20 Dose: 5 mg Dextrose/Lactated Ringer's (D5-Lr -) 1,000 mls @ 75 mls/hr IV ASDIR [facility] Laboratory Results - last 24 hr 08/05/18 08/05/18 08/05/18 22:26 22:26 22:51 WBC 6.2 RBC 4.21 Hgb 12.5 Hct 36.7 MCV 87.2 MCH 29.6 MCHC 34.0 RDW 14.5 Plt Count 180 MPV 9.6 Absolute Neuts (auto) 3.6 Neutrophils % 58.2 Lymphocytes % 33.3 D Monocytes % 6.3 Eosinophils % 1.7 Basophils % 0.5 Nucleated RBC % 0 PT with INR INR Sodium 140 Potassium 4.1 Chloride 104 Carbon Dioxide 30 Anion Gap 5 L BUN 11 Creatinine 0.7 Creat Clearance w eGFR > 60 Random Glucose 89 Calcium 9.1 Phosphorus Magnesium Total Bilirubin 0.5 Direct Bilirubin AST 14 L ALT 16 Alkaline Phosphatase 74 Troponin I < 0.02 Total Protein 7.0 Albumin 3.5 Lipase 108 Urine Color Straw Urine Appearance Slcloudy Urine pH 6.0 Ur Specific [place] 1.004 L Urine Protein Negative Urine Glucose (UA) Negative Urine Ketones Negative Urine Blood 2+ H Urine Nitrite Negative Urine Bilirubin Negative Urine Urobilinogen Negative Ur Leukocyte Esterase 2+ H Urine WBC (Auto) <1 Urine RBC (Auto) 1 Ur Epithelial Cells Few Urine Mucus Rare 08/06/18 08/06/18 08/06/18 08:40 08:40 08:40 WBC 5.8 RBC 4.58 Hgb 12.7 Hct 40.3 MCV 88.0 MCH 27.7 MCHC 31.5 L RDW 13.9 Plt Count 182 MPV 9.3 Absolute Neuts (auto) 3.6 Neutrophils % 61.4 Lymphocytes % 31.3 Monocytes % 5.4 Eosinophils % 1.4 Basophils % 0.5 Nucleated RBC % 0 PT with INR 13.30 H INR 1.13 H Sodium Potassium Chloride Carbon Dioxide Anion Gap BUN Creatinine Creat Clearance w eGFR Random Glucose Calcium Phosphorus Magnesium Total Bilirubin 0.8 Direct Bilirubin 0.2 AST 13 L ALT 15 Alkaline Phosphatase 76 Troponin I Total Protein 6.9 Albumin 3.4 Lipase Urine Color Urine Appearance Urine pH Ur Specific [place] Urine Protein Urine Glucose (UA) Urine Ketones Urine Blood Urine Nitrite Urine Bilirubin Urine Urobilinogen Ur Leukocyte Esterase Urine WBC (Auto) Urine RBC (Auto) Ur Epithelial Cells Urine Mucus 08/06/18 08:45 WBC RBC Hgb Hct MCV MCH MCHC RDW Plt Count MPV Absolute Neuts (auto) Neutrophils % Lymphocytes % Monocytes % Eosinophils % Basophils % Nucleated RBC % PT with INR INR Sodium 140 Potassium 3.9 Chloride 106 Carbon Dioxide 27 Anion Gap 7 L BUN 8 Creatinine 0.7 Creat Clearance w eGFR > 60 Random Glucose 84 Calcium 8.7 Phosphorus 3.8 Magnesium 2.0 Total Bilirubin Direct Bilirubin AST ALT Alkaline Phosphatase Troponin I Total Protein Albumin Lipase Urine Color Urine Appearance Urine pH Ur Specific [place] Urine Protein Urine Glucose (UA) Urine Ketones Urine Blood Urine Nitrite Urine Bilirubin Urine Urobilinogen Ur Leukocyte Esterase Urine WBC (Auto) Urine RBC (Auto) Ur Epithelial Cells Urine Mucus US results reviewed ASSESSMENT AND PLAN: 47 y/o F w/ PMH HTN, cholecystectomy (lap miguel 1990, residual intraductal stones 2017), 3x C-sections, EDG C-scope 2016, bariatric surgery, intermittent abdominal pain, comes with recurrent abdominal pain, nausea, dizziness. -Acute on chronic abdominal pain, (In the setting of fatty foods) -S/p cholecystectomy (1990) -Residual intraductal stones s/p MRCP 03/2018 with no concerns -Bariatric surgery -HTN Plan: Abdominal US, lFts unremarkable. Abdominal exam non concerning. US noted. MRCP In 03/2018 with no concerns. EGD/colonscopy in 2015. Will start PPI. NPO, discuss with Dr. Marmolejo, if no interventions planned, advance diet and possible d/c later today. Gentle hydration, continue amlodipine. Plan discussed with patient, all questions answered.
[2018-08-06] MEDS ORDERED: DEXTROSE 5%-LACTATED RINGERS 1,000 ML IV SCH (11:30)
[2018-08-06] MEDS ORDERED: PANTOPRAZOLE 40 MG TABLET (FP) PO SCH (11:30)
--- NOTE | 2018-08-06 14:06 | DS ---
Physical Exam: SUBJECTIVE: Patient seen and examined, sitting in bed in no acute distress. Pain improved, no nausea or dizziness, tolerating diet well. OBJECTIVE: Vital Signs Period Temp Pulse Resp BP Sys/Nj Pulse Ox Last 24 Hr 97.8 F-98.1 F 55-65 18-18 114-140/60-76 97-100 PHYSICAL EXAM GENERAL: The patient is awake, alert, and fully oriented, in no acute distress. HEAD: Normal with no signs of trauma. EYES: PERRL, extraocular movements intact, sclera anicteric, conjunctiva clear. ENT: Ears normal, nares patent, oropharynx clear without exudates, moist mucous membranes. NECK: Trachea midline, full range of motion, supple. LUNGS: Breath sounds equal, clear to auscultation bilaterally, no wheezes, no crackles, no accessory muscle use. HEART: Regular rate and rhythm, S1, S2 ABDOMEN: Soft, non distended, mild epigastric tenderness, minimal harsha- umbilical tenderness, no voluntary or involuntary guarding or rigidity, positive bowel sounds, non concerning exam EXTREMITIES: 2+ pulses, warm, well-perfused, no edema. NEUROLOGICAL: Cranial nerves II through XII grossly intact. Normal speech, gait not observed. PSYCH: Normal mood, normal affect. SKIN: Warm, dry, normal turgor, no rashes or lesions noted. LABS Laboratory Results - last 24 hr 08/05/18 08/05/18 08/05/18 22:26 22:26 22:51 WBC 6.2 RBC 4.21 Hgb 12.5 Hct 36.7 MCV 87.2 MCH 29.6 MCHC 34.0 RDW 14.5 Plt Count 180 MPV 9.6 Absolute Neuts (auto) 3.6 Neutrophils % 58.2 Lymphocytes % 33.3 D Monocytes % 6.3 Eosinophils % 1.7 Basophils % 0.5 Nucleated RBC % 0 PT with INR INR Sodium 140 Potassium 4.1 Chloride 104 Carbon Dioxide 30 Anion Gap 5 L BUN 11 Creatinine 0.7 Creat Clearance w eGFR > 60 Random Glucose 89 Calcium 9.1 Phosphorus Magnesium Total Bilirubin 0.5 Direct Bilirubin AST 14 L ALT 16 Alkaline Phosphatase 74 Troponin I < 0.02 Total Protein 7.0 Albumin 3.5 Lipase 108 Urine Color Straw Urine Appearance Slcloudy Urine pH 6.0 Ur Specific [place] 1.004 L Urine Protein Negative Urine Glucose (UA) Negative Urine Ketones Negative Urine Blood 2+ H Urine Nitrite Negative Urine Bilirubin Negative Urine Urobilinogen Negative Ur Leukocyte Esterase 2+ H Urine WBC (Auto) <1 Urine RBC (Auto) 1 Ur Epithelial Cells Few Urine Mucus Rare 08/06/18 08/06/18 08/06/18 08:40 08:40 08:40 WBC 5.8 RBC 4.58 Hgb 12.7 Hct 40.3 MCV 88.0 MCH 27.7 MCHC 31.5 L RDW 13.9 Plt Count 182 MPV 9.3 Absolute Neuts (auto) 3.6 Neutrophils % 61.4 Lymphocytes % 31.3 Monocytes % 5.4 Eosinophils % 1.4 Basophils % 0.5 Nucleated RBC % 0 PT with INR 13.30 H INR 1.13 H Sodium Potassium Chloride Carbon Dioxide Anion Gap BUN Creatinine Creat Clearance w eGFR Random Glucose Calcium Phosphorus Magnesium Total Bilirubin 0.8 Direct Bilirubin 0.2 AST 13 L ALT 15 Alkaline Phosphatase 76 Troponin I Total Protein 6.9 Albumin 3.4 Lipase Urine Color Urine Appearance Urine pH Ur Specific [place] Urine Protein Urine Glucose (UA) Urine Ketones Urine Blood Urine Nitrite Urine Bilirubin Urine Urobilinogen Ur Leukocyte Esterase Urine WBC (Auto) Urine RBC (Auto) Ur Epithelial Cells Urine Mucus 08/06/18 08:45 WBC RBC Hgb Hct MCV MCH MCHC RDW Plt Count MPV Absolute Neuts (auto) Neutrophils % Lymphocytes % Monocytes % Eosinophils % Basophils % Nucleated RBC % PT with INR INR Sodium 140 Potassium 3.9 Chloride 106 Carbon Dioxide 27 Anion Gap 7 L BUN 8 Creatinine 0.7 Creat Clearance w eGFR > 60 Random Glucose 84 Calcium 8.7 Phosphorus 3.8 Magnesium 2.0 Total Bilirubin Direct Bilirubin AST ALT Alkaline Phosphatase Troponin I Total Protein Albumin Lipase Urine Color Urine Appearance Urine pH Ur Specific [place] Urine Protein Urine Glucose (UA) Urine Ketones Urine Blood Urine Nitrite Urine Bilirubin Urine Urobilinogen Ur Leukocyte Esterase Urine WBC (Auto) Urine RBC (Auto) Ur Epithelial Cells Urine Mucus RUQ US - Right upper quadrant pain. Status post cholecystectomy. Status post gastric sleeve. Right upper abdomen ultrasound. The liver measures 16.8 cm sagittal length with a slightly dense and coarse echotexture. Status post cholecystectomy No intra or extrahepatic bile duct dilatation is seen. The common bile duct measures 6.5 mm in diameter. Limited visualization of the right kidney that appears grossly unremarkable measuring 10.3 cm in sagittal length. Visualized portion of the pancreatic head and body appear unremarkable Visualized portion of the proximal abdominal aorta and inferior vena cava appear unremarkable. Normal flow in the main portal vein. IMPRESSION: Status post cholecystectomy. Mild fatty infiltration the liver. Please correlate with liver enzymes. Limited visualization of the right kidney limits that appears grossly unremarkable Reported By: Mateusz Olmedo MD EKG: NSR, incomplete RBBB HOSPITAL COURSE: Date of Admission:08/06/18 Date of Discharge: 08/06/18 Minutes to complete discharge: 35 Discharge Summary Reason For Visit: RUQ ABD PAIN DILATION OF COMMON BILE DUCT Current Active Problems Dilation of common bile duct (Acute) RUQ abdominal pain (Acute) Hospital Course: 47 y/o F w/ PMH HTN, cholecystectomy (lap miguel 1990, residual intraductal stones 2017), 3x C-sections, EDG C-scope 2015, bariatric surgery, intermittent abdominal pain, comes with recurrent abdominal pain, nausea, dizziness. Her LFTs were unremarkable. She had ultrasound of the liver that was negative for concerns. Her symptoms improved and she was tolerating diet well with no concerns. She will be discharged on protonix with outpatient follow up with Dr. Marmolejo. Condition: Good - Instructions Diet, Activity, Other Instructions: Continue low fat low sodium as tolerated. Your liver tests were normal in the hospital. Your had liver ultrasound which did not show anything concerning You are advised to follow up with Dr. Marmolejo in 1 week to discuss further treatment. In the meantime, advise protonix 40 mg daily for 1 week and low fat diet. Continue your medications as before. FOLLOW UP: PCP in [address] Marmolejo in 1 week Protonix 40 mg daily for 1 week then as instructed by your doctor. If you have any worsening pain, dark or bloody stools, vomiting, inability to eat, please call 911 or come to ED. Referrals: Devon Rae MD [Primary Care Provider] - Atul Marmolejo MD [Staff Physician] - Disposition: HOME - Home Medications Comprehensive Discharge Medication List: Ambulatory Orders Amlodipine Besylate 5 mg PO DAILY 08/06/18 Pantoprazole Sodium [Protonix -] 40 mg PO DAILY 7 Days #7 tablet.ec 08/06/18 This patient is new to me today: Yes Date on this admission: 08/06/18 Emergency Visit: Yes ED Registration Date: 08/06/18 Care time: The patient presented to the Emergency Department on the above date and was hospitalized for further evaluation of their emergent condition. Critical Care patient: No - Discharge Referral Referred to [facility] No
[2018-08-06 15:26] VITALS: BP 125/73; PULSE 56; TEMP 98.2
--- NOTE | 2018-08-06 15:36 | CON.GI ---
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 She was by in the office on 04/04/18 for similar pain which was reminiscent of her biliary colic. I referred her for an MRCP which revealed no residual stones. She has a h/o requiring two ERCPs to remove CBD stones. The pain is intermittent and not necessarily related to eating. It radiates into both flanks at time simultaneously. No chills or fever. She had an EGHD and a colonoscopy with Dr. Lopes on 02/07/16 before having her gastric sleeve surgery with Dr Guerra at [facility] in 11/13. The colonoscopy revealed sigmoid diverticulosis and her EGD suggested gastroparesis. Biopsies failed to reveal celiac disease. She is constipated and tells me that she has not moved her bowels in several days. - History Source History Provided By: Patient Limitations to Obtaining History: No Limitations - Past Medical History Cardio/Vascular: Yes: HTN Gastrointestinal: Yes: Diverticulosis, GERD Hepatobiliary: Yes: Cholelithiasis (s/p lap choly), Choledocholithiasis ( requiring 2 ERCPs, the last in 11/01 to remove her 09/03 stent) ...LMP: 01/24/16 ...: No Endocrine: Yes: Other (thyroid nodule) Additional Medical History: Morbid obesity - Past Surgical History Past Surgical History: Yes: Bariatric Surgery (bariatric sleeve created by Dr Guerra at [facility] 11/13), Breast Biopsy (breast cyst excisions), Cholecystectomy ( laparoscopic), Colonoscopy, (x 3), Upper Endoscopy - Alcohol/Substance Use Hx Alcohol Use: Yes (socially) History of Substance Use: reports: None - Smoking History Smoking history: Never smoked Have you smoked in the past 12 months: No Aproximately how many cigarettes per day: 0 - Social History Usual Living Arrangement: With Spouse ADL: Independent 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 Place of : [facility] History of Recent Travel: No Home Medications - Allergies Allergies/Adverse Reactions: Allergies Allergy/AdvReac Type Severity Reaction Status Date / Time No Known Drug Allergies Allergy Verified 07/12/16 13:20 - Home Medications Home Medications: Ambulatory Orders Amlodipine Besylate 5 mg PO DAILY 08/06/18 Pantoprazole Sodium [Protonix -] 40 mg PO DAILY 7 Days #7 tablet.ec 08/06/18 Family Disease History - Family Disease History Family Disease History: Heart Disease: Father (stent for CAD after MA) Other Family History: aunt had colon polyps Review of Systems - Review of Systems Constitutional: reports: No Symptoms Eyes: reports: No Symptoms HENT: reports: No Symptoms Neck: reports: No Symptoms Cardiovascular: reports: No Symptoms Respiratory: reports: No Symptoms Gastrointestinal: reports: Abdominal Pain, Bloating, Constipation Neurological: reports: No Symptoms Physical Exam-GI Vital Signs: Vital Signs Temperature 98.2 F 08/06/18 14:24 Pulse Rate 56 L 08/06/18 14:24 Respiratory Rate 18 08/06/18 14:24 Blood Pressure 125/73 08/06/18 14:24 O2 Sat by Pulse Oximetry (%) 97 08/06/18 11:00 CBC,CMP WBC 5.8 K/mm3 (4.0-10.0) 08/06/18 08:40 RBC 4.58 M/mm3 (3.60-5.2) 08/06/18 08:40 Hgb 12.7 GM/dL (10.7-15.3) 08/06/18 08:40 Hct 40.3 % (32.4-45.2) 08/06/18 08:40 MCV 88.0 fl (80-96) 08/06/18 08:40 MCH 27.7 pg (25.7-33.7) 08/06/18 08:40 MCHC 31.5 g/dl (32.0-36.0) L 08/06/18 08:40 RDW 13.9 % (11.6-15.6) 08/06/18 08:40 Plt Count 182 K/MM3 (134-434) 08/06/18 08:40 MPV 9.3 fl (7.5-11.1) 08/06/18 08:40 Absolute Neuts (auto) 3.6 K/mm3 (1.5-8.0) 08/06/18 08:40 Neutrophils % 61.4 % (42.8-82.8) 08/06/18 08:40 Lymphocytes % 31.3 % (8-40) 08/06/18 08:40 Monocytes % 5.4 % (3.8-10.2) 08/06/18 08:40 Eosinophils % 1.4 % (0-4.5) 08/06/18 08:40 Basophils % 0.5 % (0-2.0) 08/06/18 08:40 Nucleated RBC % 0 % (0-0) 08/06/18 08:40 Sodium 140 mmol/L (136-145) 08/06/18 08:45 Potassium 3.9 mmol/L (3.5-5.1) 08/06/18 08:45 Chloride 106 mmol/L (98-107) 08/06/18 08:45 Carbon Dioxide 27 mmol/L (21-32) 08/06/18 08:45 Anion Gap 7 MMOL/L (8-16) L 08/06/18 08:45 BUN 8 mg/dL (7-18) 08/06/18 08:45 Creatinine 0.7 mg/dL (0.55-1.3) 08/06/18 08:45 Creat Clearance w eGFR > 60 (>60) 08/06/18 08:45 Random Glucose 84 mg/dL (74-106) 08/06/18 08:45 Calcium 8.7 mg/dL (8.5-10.1) 08/06/18 08:45 Phosphorus 3.8 mg/dL (2.5-4.9) 08/06/18 08:45 Magnesium 2.0 mg/dL (1.8-2.4) 08/06/18 08:45 Total Bilirubin 0.8 mg/dL (0.2-1) 08/06/18 08:40 Direct Bilirubin 0.2 mg/dL (0.0-0.2) 08/06/18 08:40 AST 13 U/L (15-37) L 08/06/18 08:40 ALT 15 U/L (13-61) 08/06/18 08:40 Alkaline Phosphatase 76 U/L (45-117) 08/06/18 08:40 Troponin I < 0.02 ng/ml (0.00-0.05) 08/05/18 22:26 Total Protein 6.9 g/dl (6.4-8.2) 08/06/18 08:40 Albumin 3.4 g/dl (3.4-5.0) 08/06/18 08:40 Lipase 108 U/L (73-393) 08/05/18 22:26 Current Medications Generic Name Dose Route Start Last Admin Trade Name Estrada PRN Reason Stop Dose Admin Acetaminophen 1,000 mg 08/06/18 02:59 Ofirmev Injection - IVPB Q6H PRN PAIN LEVEL 6-10 Amlodipine Besylate 5 mg 08/06/18 10:00 08/06/18 10:20 Norvasc - PO 5 mg DAILY URI Administration Dextrose/Lactated Ringer's 1,000 mls @ 75 mls/hr 08/06/18 11:30 08/06/18 13: 09 D5-Lr - IV 75 mls/hr ASDIR URI Administration Pantoprazole Sodium 40 mg 08/06/18 11:30 08/06/18 13:09 Protonix - PO 40 mg DAILY URI Administration Constitutional: Yes: No Distress Eyes: Yes: Conjunctiva Clear HENT: Yes: Atraumatic Neck: Yes: Supple Cardiovascular: Yes: Regular Rate and Rhythm Respiratory: Yes: CTA Bilaterally Gastrointestinal Inspection: Yes: Scars (healed laparoscopic and Pfannensteil incisions) ...Auscultate: Yes: Normoactive Bowel Sounds ...Palpate: Yes: Soft, Other ...Percussion: Yes: Tympanitic ...Rectal Exam: Yes: Other (done in office 04/16 and was g negative) Labs: CBC, BMP 08/06/18 08:40 08/06/18 08:45 INR, PTT INR 1.13 (0.83-1.09) H 08/06/18 08:40 Imaging - Results MRI: Image Reviewed (no CBD stones or dilation) Problem List - Problems (1) Abdominal pain Assessment/Plan: Given her MRCP and LFT results I doubt biliary colic. She may alternatively have an ulcer, perhaps severe GERD and large hiatal herniation. I have therefore advised pursuing EGD as an outpatient. I have informed Abdelrahman of the potential for such complications as perforation and hemorrhage. She will contact my office to arrange it. I have advised Gaviscon prn in the interim. I have also advised Miralax BID as her pain could be intestinal colic due to fecal impaction Code(s): R10.9 - UNSPECIFIED ABDOMINAL PAIN (2) Constipation Code(s): K59.00 - CONSTIPATION, UNSPECIFIED (3) History of calculus of gallbladder Code(s): Z87.19 - PERSONAL HISTORY OF OTHER DISEASES OF THE DIGESTIVE SYSTEM (4) Choledocholithiasis Code(s): K80.50 - CALCULUS OF BILE DUCT W/O CHOLANGITIS OR CHOLECYST W/O OBST (5) Diverticulosis Code(s): K57.90 - DVRTCLOS OF INTEST, PART UNSP, W/O PERF OR ABSCESS W/O BLEED Assessment/Plan NO GI objections to discharge Will pursue EGD as an outpatient Trial of Gaviscon and Miralax
== END 2018-08-06 16:13 | disposition home or self-care (01) ==
LOC: JER 18:50 → JERBED 08-06 01:03 → J5S 08-06 03:53
PROVIDERS: ADMIT Internal Medicine; ATTEND Hospitalist
DX: R10.11 Right upper quadrant pain (principal); K83.8 Other specified diseases of biliary tract; K80.20 Calculus of gallbladder without cholecystitis without obstruction; K80.50 Calculus of bile duct without cholangitis or cholecystitis without obstruction; I10 Essential (primary) hypertension; K21.9 Gastro-esophageal reflux disease without esophagitis; K57.90 Diverticulosis of intestine, part unspecified, without perforation or abscess without bleeding; E66.01 Morbid (severe) obesity due to excess calories; Z68.39 Body mass index [BMI] 39.0-39.9, adult; Z98.84 Bariatric surgery status
CPT/HCPCS: 36415; 71045-TC-FY; 76705-TC; 80048; 80053; 80076; 81003; 81015; 83690; 83735; 84100; 84484; 85025; 85610; 87086; 93005; 93010; 99284-25; G0378

== ENCOUNTER 2018-08-19 07:46 | Day surgery (SDC) | payer BC ==
[2018-08-16 15:07] VITALS: BMI 39.7
[2018-08-19 10:05] VITALS: TEMP 97.8
[2018-08-19 11:26] VITALS: BP 113/75; PULSE 61
--- NOTE | 2018-08-20 11:29 | PATH ---
Surgical Pathology Report Patient Name: JAIRO LAKE [facility]. Rec. #: [id number] /Age/Gender: 1970 (Age: 48) / F Account: [id number] Location: [facility]-ENDOSCOPY Taken: 08/19/2018 Received: 08/19/2018 Reported: 08/20/2018 Physicians: Atul Marmolejo M.D. Specimen(s) Received A: BX 2ND PORTION DUODENUM AND DUODENAL BULB B: BX ANTRUM Clinical History Abdominal pain Final Diagnosis A. SECOND PORTION DUODENUM AND DUODENUM BULB, BIOPSY: DUODENUM MUCOSA WITH ACTIVE INFLAMMATION IN THE LAMINA PROPRIA. NO HISTOLOGIC EVIDENCE OF CELIAC DISEASE. B. ANTRUM, BIOPSY: GASTRIC MUCOSA WITH CHRONIC GASTRITIS. IMMUNOSTAIN FOR H. PYLORI IS NEGATIVE. NEGATIVE FOR INTESTINAL METAPLASIA. Electronically Signed Hang Nguyen M.D. Gross Description A. Received in formalin, labeled "second portion duodenum and duodenum bulb" are multiple noguera, irregular portions of soft tissue measuring 0.6 cm. in greatest dimension. The specimens are submitted in toto in one cassette. B. Received in formalin, labeled "antrum" are 2 noguera, irregular portions of soft tissue measuring 0.4 cm. in greatest dimension. The specimens are submitted in toto in one cassette. __ BERTO/08/19/2018 lalo/08/19/2018
== END 2018-08-19 11:10 | disposition home or self-care (01) ==
LOC: JASU-ENDO 07:46
PROVIDERS: ATTEND Internal Medicine Gastroenterology
PROC: 0DB68ZX Excision of Stomach, Via Natural or Artificial Opening Endoscopic, Diagnostic (ICD-10-PCS; principal; 2018-08-19 09:30)
DX: K44.9 Diaphragmatic hernia without obstruction or gangrene (principal); R10.13 Epigastric pain; Z98.84 Bariatric surgery status; I10 Essential (primary) hypertension
CPT/HCPCS: 84703; 88305-TC; 88342-TC

== ENCOUNTER 2019-07-18 17:40 | Emergency (ER) | payer OTHER, BC ==
[2019-07-18 18:16] VITALS: TEMP 98.2; BMI 35.7
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
[2019-07-18] MEDS ORDERED: SODIUM CHLORIDE 1,000 ML IV STA (19:27)
[2019-07-18] MEDS ORDERED: morphine CARPU-JECT 4 MG/1 ML DISP.SYRIN IVPUSH ONE (19:27)
[2019-07-18] MEDS ORDERED: morphine SULFATE 4 MG/ML VIAL ONE (19:39)
[2019-07-18 20:21] LABS: BASO % 0.4 % (0-2.0); EOS % 1.6 % (0-4.5); HEMATOCRIT 35.8 % (32.4-45.2); HEMOGLOBIN 11.6 GM/dL (10.7-15.3); LYMPH % 29.8 % (8-40); MCH 28.4 pg (25.7-33.7); MCHC 32.3 g/dl (32.0-36.0); MEAN CELL VOLUME 87.8 fl (80-96); MEAN PLT VOLUME 9.8 fl (7.5-11.1); MONO % 6.7 % (3.8-10.2); NEUT % 61.5 % (42.8-82.8); PLATELET COUNT 227 K/MM3 (134-434); RBC 4.08 M/mm3 (3.60-5.2); RDW 14.2 % (11.6-15.6); WHITE BLOOD COUNT 6.8 K/mm3 (4.0-10.0)
[2019-07-18 20:46] LABS: ALBUMIN 3.3 g/dl (3.4-5.0); ALK PHOS 75 U/L (45-117); ANION GAP 7 MMOL/L (8-16); BILIRUBIN,TOTAL 0.3 mg/dL (0.2-1); BLOOD UREA NITROGEN 11.9 mg/dL (7-18); CALCIUM 8.9 mg/dL (8.5-10.1); CHLORIDE 108 mmol/L (98-107); CO2 27 mmol/L (21-32); CREATININE 0.7 mg/dL (0.55-1.3); GLUCOSE,RANDOM 86 mg/dL (74-106); SGOT/AST 20 U/L (15-37); SGPT/ALT 17 U/L (13-61); SODIUM 142 mmol/L (136-145); TOT PROT 6.6 g/dl (6.4-8.2)
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
[2019-07-18] MEDS ORDERED: LIDOCAINE PATCH REMOVAL MC SCH (22:00)
[2019-07-18 23:09] VITALS: BP 133/73; PULSE 62
[2019-07-18] MEDS ORDERED: KETOROLAC TROMETHAMINE 30 MG/1 ML VIAL IVPUSH ONE (23:57)
[2019-07-18] MEDS ORDERED: LIDOCAINE 5% TOPICAL PATCH TP ONE (23:59)
[2019-07-19] MEDS ORDERED: LIDOCAINE 5% TOPICAL PATCH ONE (00:03)
[2019-07-19] MEDS ORDERED: KETOROLAC TROMETHAMINE 30 MG/1 ML VIAL ONE (00:04)
--- NOTE | 2019-07-19 14:11 | EKG ---
Test Reason : Blood Pressure : / mmHG Vent. Rate : 060 BPM Atrial Rate : 060 BPM P-R Int : 182 ms QRS Dur : 106 ms QT Int : 470 ms P-R-T Axes : 049 -12 039 degrees QTc Int : 470 ms NORMAL SINUS RHYTHM INCOMPLETE RIGHT BUNDLE BRANCH BLOCK BORDERLINE ECG WHEN COMPARED WITH ECG OF 05-AUG-2018 21:11, NO SIGNIFICANT CHANGE WAS FOUND Confirmed by SHEMAR LEZAMA MD ([id number]) on 07/19/2019 2:11:23 PM Referred By: Confirmed By:SHEMAR LEZAMA MD
== END 2019-07-19 00:32 | disposition home or self-care (01) ==
LOC: JER 17:40
CPT/HCPCS: 36415; 71045-TC-FY; 71101-TC-RT-FY; 71260-TC; 72125-TC; 72131-TC; 72170-TC-FY; 73030-TC-RT-FY; 73110-TC-RT-FY; 73562-TC-LT-FY; 73562-TC-RT-FY; 73590-TC-LT-FY; 73590-TC-RT-FY; 74177-TC; 80053; 80307; 84484; 84703; 85025; 86850; 86900; 86901; 93005; 93010; 99285-25; J7030

== ENCOUNTER 2021-08-19 04:38 | Day surgery (SDC) | payer BC ==
[2021-08-16 16:04] VITALS: BMI 42.0
[2021-08-19 13:09] VITALS: TEMP 97.7
[2021-08-19 13:49] VITALS: BP 131/69; PULSE 61
== END 2021-08-19 14:12 | disposition home or self-care (01) ==
LOC: JASU-ENDO 04:38
PROVIDERS: ATTEND Internal Medicine Gastroenterology
PROC: 0DB68ZX Excision of Stomach, Via Natural or Artificial Opening Endoscopic, Diagnostic (ICD-10-PCS; 2021-08-19)
PROC: 0DB98ZX Excision of Duodenum, Via Natural or Artificial Opening Endoscopic, Diagnostic (ICD-10-PCS; principal; 2021-08-19 12:30)
DX: K21.00 Gastro-esophageal reflux disease with esophagitis, without bleeding (principal); K25.9 Gastric ulcer, unspecified as acute or chronic, without hemorrhage or perforation; K29.50 Unspecified chronic gastritis without bleeding; Z98.84 Bariatric surgery status
CPT/HCPCS: 81025; 88305-TC; 88342-TC

== ENCOUNTER → 2022-02-22 | Day surgery (SDC) | payer BC | END | disposition home or self-care (01) | LOC: JRADIR 10:07 | PROVIDERS: ATTEND Internal Medicine Endocrinology, Diabetes & Metabolism | PROC: BG44ZZZ Ultrasonography of Thyroid Gland (ICD-10-PCS; principal; 2022-02-22) | DX: E04.1 Nontoxic single thyroid nodule (principal); Z53.8 Procedure and treatment not carried out for other reasons | CPT/HCPCS: 10005; 76536-TC ==

== ENCOUNTER 2022-06-29 12:07 | Emergency (ER) | payer OTHER, BC ==
[2022-06-29 12:24] VITALS: BP 137/77; PULSE 71; RESP 18; TEMP 98.1; BMI 41.5
[2022-06-29] MEDS ORDERED: IBUPROFEN 600 MG TABLET (FP) PO ONE (14:11)
== END 2022-06-29 15:17 | disposition home or self-care (01) ==
LOC: JER 12:07
DX: S90.31XA Contusion of right foot, initial encounter (principal); W20.8XXA Other cause of strike by thrown, projected or falling object, initial encounter
CPT/HCPCS: 73630-TC-RT-FY; 99283-25

== ENCOUNTER 2022-11-17 13:07 | Emergency (ER) | payer BC, OTHER ==
[2022-11-17 13:20] VITALS: BMI 41.5
[2022-11-17] MEDS ORDERED: ACETAMINOPHEN 1000 MG/100 ML BAG IVPB ONE (13:46)
[2022-11-17] MEDS ORDERED: LIDOCAINE 5% TOPICAL PATCH TP ONE (13:46)
[2022-11-17] MEDS ORDERED: ACETAMINOPHEN INJECTION 100 ML IVPB ONE (14:03)
[2022-11-17] MEDS ORDERED: LIDOCAINE 5% TOPICAL PATCH ONE (14:03)
[2022-11-17 15:09] LABS: BASO % 0.3 % (0-2.0); EOS % 1.1 % (0-4.5); HEMATOCRIT 38.5 % (32.4-45.2); HEMOGLOBIN 12.8 GM/dL (10.7-15.3); LYMPH % 22.1 % (8-40); MCH 28.7 pg (25.7-33.7); MCHC 33.1 g/dl (32.0-36.0); MEAN CELL VOLUME 86.5 fl (80-96); MEAN PLT VOLUME 11.2 fl (7.5-11.1); MONO % 7.9 % (3.8-10.2); NEUT % 68.6 % (42.8-82.8); PLATELET COUNT 209 10^3/uL (134-434); RBC 4.45 M/mm3 (3.60-5.2); RDW 14.5 % (11.6-15.6); WHITE BLOOD COUNT 7.5 K/mm3 (4.0-10.0)
[2022-11-17 15:10] LABS: PH,URINE 5.5 (5.0-8.0); URINE APPEARANCE CLEAR; URINE BILIRUBIN NEGATIVE (NEGATIVE); URINE COLOR YELLOW; URINE GLUCOSE (UA) NEGATIVE (NEGATIVE); URINE KETONE NEGATIVE (NEGATIVE); URINE LEUK ESTERASE NEGATIVE (NEGATIVE); URINE NITRITE NEGATIVE (NEGATIVE); URINE PROTEIN NEGATIVE (NEGATIVE); URINE UROBILINOGEN 0.2 mg/dL (0.2-1.0)
[2022-11-17 15:34] LABS: ALBUMIN 3.6 g/dl (3.4-5.0); BLOOD UREA NITROGEN 9.2 mg/dL (7-18); CALCIUM 9.5 mg/dL (8.5-10.1)
[2022-11-17 15:37] LABS: CREATININE 0.7 mg/dL (0.55-1.3)
[2022-11-17 15:39] LABS: BILIRUBIN,TOTAL 0.5 mg/dL (0.2-1); TOT PROT 7.3 g/dl (6.4-8.2)
[2022-11-17 17:08] VITALS: BP 136/75; PULSE 64; RESP 18; TEMP 98
[2022-11-17] MEDS ORDERED: KETOROLAC TROMETHAMINE 15 MG/ML VIAL IVPUSH ONE (17:11)
[2022-11-17] MEDS ORDERED: CIPROFLOXACIN 500 MG TABLET (RESTRICTED TO ID) PO ONE (17:11)
[2022-11-17] MEDS ORDERED: metroNIDAZOLE 500 MG TABLET PO ONE (17:11)
[2022-11-17] MEDS ORDERED: metroNIDAZOLE 250 MG TABLET ONE (17:26)
[2022-11-17] MEDS ORDERED: LIDOCAINE PATCH REMOVAL MC ONE (22:00)
== END 2022-11-17 17:48 | disposition home or self-care (01) ==
LOC: JERFT 13:07 → JER 13:07 → JERFT 17:48
PROC: 3E033NZ Introduction of Analgesics, Hypnotics, Sedatives into Peripheral Vein, Percutaneous Approach (ICD-10-PCS; principal; 2022-11-17)
PROC: 3E0333Z Introduction of Anti-inflammatory into Peripheral Vein, Percutaneous Approach (ICD-10-PCS; 2022-11-17)
DX: K57.92 Diverticulitis of intestine, part unspecified, without perforation or abscess without bleeding (principal); R10.32 Left lower quadrant pain; M54.50 Low back pain, unspecified
CPT/HCPCS: 36415; 74177-TC; 80053; 81003; 85025; 87086; 99285-25; Q9967

== ENCOUNTER 2023-05-15 05:27 | Day surgery (SDC) | payer BC ==
[2023-05-09 12:58] VITALS: BMI 43.2
[2023-05-15 11:35] VITALS: RESP 20; TEMP 97.8
[2023-05-15 12:12] VITALS: BP 122/76; PULSE 61
== END 2023-05-15 12:25 | disposition home or self-care (01) ==
LOC: JASU-ENDO 05:27
PROVIDERS: ATTEND Internal Medicine Gastroenterology
PROC: 0DJD8ZZ Inspection of Lower Intestinal Tract, Via Natural or Artificial Opening Endoscopic (ICD-10-PCS; principal; 2023-05-15 11:00)
DX: Z12.11 Encounter for screening for malignant neoplasm of colon (principal); K64.8 Other hemorrhoids; K57.30 Diverticulosis of large intestine without perforation or abscess without bleeding; Z86.010 Personal history of colon polyps
CPT/HCPCS: 81025

== ENCOUNTER 2023-07-20 15:58 | Observation (INO) | payer BC ==
[2023-07-20 16:03] VITALS: BMI 41.5
[2023-07-20] MEDS ORDERED: SODIUM CHLORIDE 1,000 ML IV STA (16:52)
[2023-07-20] MEDS ORDERED: ACETAMINOPHEN 1000 MG/100 ML BAG IVPB ONE (16:54)
[2023-07-20] MEDS ORDERED: MAGNESIUM SULF 50% (8.12 MEQ/2 ML-1 GM VIAL) IVPB ONE (16:55)
[2023-07-20] MEDS ORDERED: METOCLOPRAMIDE HCL INJECTION 10 MG/2 ML VIAL IVPUSH ONE (16:55)
[2023-07-20] MEDS ORDERED: MAGNESIUM SULFATE IN WATER 2 GM/50 ML IVPB IVPB ONE (17:03)
[2023-07-20] MEDS ORDERED: METOCLOPRAMIDE HCL INJECTION 10 MG/2 ML VIAL ONE (17:03)
[2023-07-20] MEDS ORDERED: ACETAMINOPHEN INJECTION 100 ML IVPB ONE (17:03)
[2023-07-20 17:29] LABS: BASO % 0.8 % (0-2.0); HEMATOCRIT 39.6 % (32.4-45.2); LYMPH % 25.4 % (8-40); MCH 28.1 pg (25.7-33.7); MCHC 32.9 g/dl (32.0-36.0); MEAN CELL VOLUME 85.3 fl (80-96); MEAN PLT VOLUME 9.2 fl (7.5-11.1); MONO % 6.5 % (3.8-10.2); NEUT % 65.3 % (42.8-82.8); PLATELET COUNT 287 10^3/uL (134-434); RBC 4.64 M/mm3 (3.60-5.2); RDW 14.4 % (11.6-15.6); WHITE BLOOD COUNT 7.3 K/mm3 (4.0-10.0)
[2023-07-20 17:37] LABS: INR 1.09 (0.83-1.09); PROTHROMBIN TIME (PATIENT) 12.6 SEC (9.7-13.0)
[2023-07-20 17:39] LABS: ACTIVATED PTT 30.1 SECONDS (25.2-36.5)
[2023-07-20 17:56] LABS: POTASSIUM 4.4 mmol/L (3.5-5.1)
[2023-07-20 17:58] LABS: ALBUMIN 3.7 g/dl (3.4-5.0); BLOOD UREA NITROGEN 14.7 mg/dL (7-18); CALCIUM 9.8 mg/dL (8.5-10.1); MAGNESIUM 2.2 mg/dL (1.8-2.4)
[2023-07-20 18:01] LABS: CREATININE 0.7 mg/dL (0.55-1.3)
[2023-07-20 18:03] LABS: BILIRUBIN,TOTAL 0.3 mg/dL (0.2-1); TOT PROT 7.8 g/dl (6.4-8.2)
[2023-07-21 00:54] VITALS: RESP 17
[2023-07-21] MEDS ORDERED: ACETAMINOPHEN 500 MG TABLET (FP) PO PRN (01:39)
[2023-07-21] MEDS ORDERED: LACTATED RINGERS SOLUTION 1,000 ML/1,000 ML INFUS.BAG IV SCH (01:45)
[2023-07-21 04:35] LABS: URINE APPEARANCE CLEAR; URINE BILIRUBIN NEGATIVE (NEGATIVE); URINE COLOR YELLOW; URINE GLUCOSE (UA) NEGATIVE (NEGATIVE); URINE KETONE NEGATIVE (NEGATIVE); URINE LEUK ESTERASE NEGATIVE (NEGATIVE); URINE NITRITE NEGATIVE (NEGATIVE); URINE PROTEIN NEGATIVE (NEGATIVE); URINE UROBILINOGEN 0.2 mg/dL (0.2-1.0)
[2023-07-21 07:22] LABS: HEMATOCRIT 35.6 % (32.4-45.2); HEMOGLOBIN 11.7 GM/dL (10.7-15.3); MCH 28.5 pg (25.7-33.7); MCHC 32.8 g/dl (32.0-36.0); MEAN CELL VOLUME 86.9 fl (80-96); MEAN PLT VOLUME 9.8 fl (7.5-11.1); PLATELET COUNT 242 10^3/uL (134-434); RBC 4.09 M/mm3 (3.60-5.2); RDW 14.2 % (11.6-15.6); WHITE BLOOD COUNT 5.2 K/mm3 (4.0-10.0)
[2023-07-21 07:29] LABS: POTASSIUM 3.9 mmol/L (3.5-5.1)
[2023-07-21 07:50] LABS: ALBUMIN 3.2 g/dl (3.4-5.0); BLOOD UREA NITROGEN 9.9 mg/dL (7-18)
[2023-07-21 07:52] LABS: CREATININE 0.7 mg/dL (0.55-1.3)
[2023-07-21 07:53] LABS: TOT PROT 6.6 g/dl (6.4-8.2)
[2023-07-21 07:54] LABS: BILIRUBIN,TOTAL 0.5 mg/dL (0.2-1)
[2023-07-21 08:11] LABS: HCG,QUALITATIVE URINE Negative
[2023-07-21] MEDS ORDERED: amLODIPine BESYLATE 10 MG TABLET (FP) PO SCH (10:00)
[2023-07-21] MEDS ORDERED: PARoxetine HCL 10 MG TABLET PO SCH (10:00)
[2023-07-21] MEDS ORDERED: ENOXAPARIN NA (PORCINE) 40 MG/0.4 ML DISP.SYRIN SQ SCH (10:00)
[2023-07-21 11:14] VITALS: BP 101/66; PULSE 78; TEMP 98.2
== END 2023-07-21 14:10 | disposition home or self-care (01) ==
LOC: JER 15:58 → JERBED 18:35 → J4W 07-21 00:40
PROVIDERS: ADMIT Internal Medicine; ATTEND Internal Medicine
PROC: 3E033NZ Introduction of Analgesics, Hypnotics, Sedatives into Peripheral Vein, Percutaneous Approach (ICD-10-PCS; principal; 2023-07-20)
PROC: 3E0337Z Introduction of Electrolytic and Water Balance Substance into Peripheral Vein, Percutaneous Approach (ICD-10-PCS; 2023-07-20)
PROC: 3E023GC Introduction of Other Therapeutic Substance into Muscle, Percutaneous Approach (ICD-10-PCS; 2023-07-20)
PROC: 3E033GC Introduction of Other Therapeutic Substance into Peripheral Vein, Percutaneous Approach (ICD-10-PCS; 2023-07-20)
DX: R23.2 Flushing (principal); R00.2 Palpitations; R51.9 Headache, unspecified; R50.9 Fever, unspecified; R42 Dizziness and giddiness; H53.8 Other visual disturbances; Z98.84 Bariatric surgery status; Z90.49 Acquired absence of other specified parts of digestive tract; Z87.891 Personal history of nicotine dependence; K21.9 Gastro-esophageal reflux disease without esophagitis; I10 Essential (primary) hypertension; E66.01 Morbid (severe) obesity due to excess calories; Z68.41 Body mass index [BMI] 40.0-44.9, adult
CPT/HCPCS: 0241U-QW; 36415; 70450-TC; 71046-TC-FY; 80053; 81003; 82550; 83735; 84439; 84443; 84484; 84703; 85025; 85027; 85610; 85730; 87086; 93005; 93010; 99285-25; G0378